=== PATIENT | male | born 1960 | race Caucasian/White ===

== ENCOUNTER → 2019-03-18 | Outpatient (CLI) | payer BC ==
--- NOTE | 2019-03-18 18:22 | CARDNUC ---
[place] [address] CARDIAC NUCLEAR IMAGING REPORT Name: ALLIEDOROTHY Montes Room: [facility]#: [id number] Admission: 03/18/19 Attend Phys: Chaak Zhou MD Discharge: Date of : 60 Date of Service: 03/18/191820 Report #: [id number] THIS REPORT FOR: //name// APPROVED REPORT Imaging Protocol: Rest Tc-99m/Stress Tc-99m 1 day Study performed: 03/18/2019 11:12:59 Indication: elevated calcium score Patient Location: Out-Patient Stress Nurse: MELECIO Bourgeois Tech:LEANDRA Calvin Ht: 5 ft 11 in Wt: 221 lbs BSA: 2.20 m2 BMI: 30.82 Medical History Medical History: HTN, Hyperlipidemia Medications: procardia Allergies: ees, pcn Cardiac Risk Factors: age, hyperlipidemia, hypertension Exercise History: Physically active Resting Data Rest SPECT myocardial perfusion imaging was performed in supine position 30 minutes following the intravenous injection of 11.9 mCi of Tc-99m Sestamibi. Time of rest injection: 949 Date: 03/18/2019 The images were gated to evaluate regional wall motion and calculate left ventricular ejection fraction. Administration Route: IV Administration Site: Right Hand Exercise Stress At peak stress, the patient was injected intravenously with 35.3mCi of Tc-99m Sestamibi. Time of stress injection: 1115 Date: 03/18/2019 Administration Route: IV Administration Site: Right Hand Gated Stress SPECT was performed 30 minutes after stress injection. The images were gated to evaluate regional wall motion and calculate left ventricular ejection fraction. [place] [address] CARDIAC NUCLEAR IMAGING REPORT Name: ALLIEDOROTHY Montes Room: [facility]#: [id number] Admission: 03/18/19 Attend Phys: Chaka Zhou MD Discharge: Date of : 60 Date of Service: 03/18/19 1821 Report #: [id number] Stress Test Details Stress Test: Exercise stress testing was performed using a Blaze protocol. HR Max Heart Rate (APMHR): 162 bpm Resting HR: 66 bpm Target HR (85% APMHR): 137 bpm Max HR Achieved: 158 bpm % of APMHR: 97 Recovery HR: 103 bpm BP Resting BP: 123/84 mmHg Max BP: 211/82 mmHg Recovery BP: 142/85 mmHg ECG Resting ECG: Sinus Rhythm Stress ECG: Sinus Tachycardia ST Change: None Arrhythmia: None Recovery ECG: Sinus Rhythm Recovery ST Change: None Recovery Arrhythmia: None Clinical Reason for Termination: Fatigue, Leg pain/Claudication Exercise duration: 10 min 44 sec Exercise capacity: 13.0 METs Overall Exercise Capacity for Age: Superior Functional Aerobic Impairment 98% The patient tolerated stated Blaze protocol exercise without significant cardiac symptoms. Stress ECG Conclusion The baseline 12-lead EKG shows sinus rhythm with out significant ST segment abnormality. EKGs obtained during and post exercise showed sinus rhythm and sinus tachycardia without significant ST segment change. There is slight T-wave inversion. There were no significant stress-induced arrhythmias. Study Quality Study: Good Artifact: No artifact Study Data At rest, the left ventricular ejection fraction was 53%.. Post stress, the left ventricular ejection was 61%.. [place] [address] CARDIAC NUCLEAR IMAGING REPORT Name: DOROTHY KELLEY Room: [facility]#: [id number] Admission: 03/18/19 Attend Phys: Chaka Zhou MD Discharge: Date of : 60 Date of Service: 03/18/19 1821 Report #: [id number] TID = 0.94. Perfusion Perfusion images obtained at rest and post exercise stress show uniform uptake of the radioisotope throughout the myocardium without defect. Wall Motion Normal left ventricular wall motion. Nuclear Conclusion ECG Findings: negative for ischemia Clinical Findings: negative for ischemia Nuclear Findings: negative for ischemia Exercise Capacity: normal Left Ventricular Function: normal Risk Study: low Myocardial perfusion images show no defect to suggest infarct or ischemia. Left ventricular systolic function appears normal on gated studies. This is a low risk study. <Conclusion> The baseline 12-lead EKG shows sinus rhythm with out significant ST segment abnormality. EKGs obtained during and post exercise showed sinus rhythm and sinus tachycardia without significant ST segment change. There is slight T-wave inversion. There were no significant stress-induced arrhythmias. <ELECTRONICALLY SIGNED> By: Brady Escalante MD, FACC 03/18/191820 20 20 Brady Escalante MD, FACC /INF
== END ==
LOC: M.NUC 02-08 15:00
DX: R07.1 Chest pain on breathing (principal); R93.1 Abnormal findings on diagnostic imaging of heart and coronary circulation; R07.9 Chest pain, unspecified; I10 Essential (primary) hypertension; E78.5 Hyperlipidemia, unspecified; Z79.899 Other long term (current) drug therapy

== ENCOUNTER 2021-03-25 00:50 | Emergency (ER) | payer BC ==
[~2021-03-25] VITALS: Ht 185.4 cm; Wt 102.1 kg
[2021-03-25] MEDS ORDERED: NIFEDIPINE ER30 M1 PO (01:06)
[2021-03-25] MEDS ORDERED: FLOMAX0.4 MG PO (01:06)
[2021-03-25 01:41] LABS: URINE BILIRUBIN NEGATIVE (Negative); URINE BLOOD TRACE (Negative); URINE CLARITY CLEAR; URINE COLOR YELLOW; URINE GLUCOSE-RANDOM NEGATIVE (Negative); URINE KETONES NEGATIVE (Negative); URINE LEUKOCYTES-REFLEX NEGATIVE (Negative); URINE NITRITE-REFLEX NEGATIVE (Negative); URINE PROTEIN NEGATIVE (Negative); URINE UROBILINOGEN 0.2 E.U./dl (0.2-1.0)
[2021-03-25 01:54] LABS: ABSOLUTE EOSINOPHILS 0.2 thou/uL (0.0-0.7); ABSOLUTE LYMPHOCYTES 0.8 thou/uL (0.8-5.3); ABSOLUTE MONOCYTES 0.4 thou/uL (0.0-1.2); ABSOLUTE NEUTROPHILS 3.9 thou/uL (1.6-8.1); BASOPHILS 0.6 %; EOSINOPHILS 3.5 %; HEMATOCRIT 41.2 % (42.0-52.0); HEMOGLOBIN 14.3 gm/dL (14.0-18.0); LYMPHOCYTES 14.5 %; MCH 32.6 pg (26.0-34.0); MCHC 34.8 g/dL (28.0-37.0); MCV 93.7 fL (80.0-100.0); MONOCYTES 7.8 %; MPV 9.3 fl. (7.2-11.1); NUCLEATED RBCS 0 /100WBC; PLATELET COUNT* 162 thou/uL (150-400); POLYS 73.6 %; WBC 5.3 thou/uL (4.0-11.0)
[2021-03-25 02:15] LABS: CREATININE 1.1 mg/dL (0.6-1.3); POTASSIUM 3.8 mmol/L (3.5-5.1)
[2021-03-25 02:19] LABS: ALBUMIN 3.9 g/dL (3.4-5.0); TOTAL BILIRUBIN 0.5 mg/dL (<0.1-1.0); TOTAL PROTEIN 6.6 g/dL (6.4-8.2)
[2021-03-25] MEDS ORDERED: ZOFRAN ODT4 MG PO (03:57)
[2021-03-25] MEDS ORDERED: HYDROCODON-ACE1 EAC7 PO (03:57)
[2021-03-25 04:03] VITALS: BP 132/88
== END 2021-03-25 04:03 | disposition home or self-care (01) ==
LOC: M.ERS 00:50
PROVIDERS: Personal Emergency Response Attendant
DX: N13.2 Hydronephrosis with renal and ureteral calculous obstruction (principal); N28.1 Cyst of kidney, acquired; Z79.899 Other long term (current) drug therapy; Z88.1 Allergy status to other antibiotic agents; Z88.0 Allergy status to penicillin